=== PATIENT | male | born 1965 | race Two or more races ===

== ENCOUNTER 2022-04-02 01:54 | Emergency (ER) | payer MEDICAID, OTHER ==
[~2022-04-02] VITALS: Ht 182.9 cm; Wt 68.0 kg
[2022-04-02] MEDS ORDERED: HYDROcodone-ACET 5/325MG TAB PO ONE (07:30)
[2022-04-02] MEDS ORDERED: KETOROLAC TROMETH 60MG/2ML VIAL IM ONE (07:30)
[2022-04-02 07:52] VITALS: BP 126/88
== END 2022-04-02 11:45 | disposition home or self-care (01) ==
LOC: ER 01:54 → EDBD 01:54 → ER 11:24
DX: M79.10 Myalgia, unspecified site (principal); F41.9 Anxiety disorder, unspecified; F17.210 Nicotine dependence, cigarettes, uncomplicated

== ENCOUNTER 2022-05-04 01:56 | Emergency (ER) | payer MEDICAID ==
[~2022-05-04] VITALS: Ht 182.9 cm; Wt 68.0 kg
[2022-05-04 03:21] LABS: Basophils # (auto) 0 10 ^3/uL (0-0.2); Basophils % (auto) 1.2 % (0.0-2.0); Eosinophils # (auto) 0.1 10 ^3/uL (0-0.8); Eosinophils % (auto) 2.3 % (0.0-7.0); Hemoglobin 12.2 g/dL (13.5-17.5); Lymphocytes # (auto) 1.2 10 ^3/uL (0.4-5.4); Mean Corpuscular Hemoglobin 31.4 pg (28.0-32.0); Mean Corpuscular Volume 95.2 fL (80.0-100.0); Monocytes # (auto) 0.4 10 ^3/uL (0-1.3); Monocytes % (auto) 10.3 % (0.0-12.0); Neutrophils # (auto) 2.4 10 ^3/uL (1.6-8.6); Neutrophils % (auto) 58.2 % (37.0-80.0); Nucleated Red Blood Cells % 0.1 %; Red Blood Cells 3.89 10^6/uL (4.5-5.90); Red Cell Distribution Width 16.3 % (11.8-14.3); White Blood Cell 4.1 10^3/uL (4.4-10.8)
[2022-05-04 03:37] LABS: Albumin 3.6 g/dL (3.4-5.0); BUN/Creatinine Ratio 10.7; Potassium 3.6 mmol/L (3.5-5.1)
[2022-05-04 03:38] LABS: Salicylate < 1.7 mg/dL (2.8-20.0)
[2022-05-04 03:41] LABS: Bilirubin, Total 0.2 mg/dL (0.2-1.0); Total Protein 6.9 g/dL (6.4-8.2)
[2022-05-04 03:56] LABS: Acetaminophen < 2.0 ug/mL (10-30)
[2022-05-04] MEDS ORDERED: LORazepam 0.5 MG TAB PO ONE ×3 (04:00→13:45)
[2022-05-05 09:27] LABS: Urine Bacteria NONE SEEN /hpf (None Seen); Urine Blood Negative /uL (Negative); Urine WBC 1 /hpf (0 - 3)
[2022-05-05 09:41] LABS: Alcohol, Urine < 3.0 mg/dL (0-10); Amphetamine Screen, Urine NEGATIVE (NEGATIVE); Barbiturate Scree,Urine NEGATIVE (NEGATIVE); Benzodiazephine Screen, Urine NEGATIVE (NEGATIVE); Cannabinoid Screen, Urine NEGATIVE (NEGATIVE); Cocaine Screen, Urine NEGATIVE (NEGATIVE); Opiate Scree,Urine NEGATIVE (NEGATIVE); Phencyclidine Screen, Urine NEGATIVE (NEGATIVE)
[2022-05-06 02:59] VITALS: BP 115/91
== END 2022-05-06 07:09 | disposition home or self-care (01) ==
LOC: ER 01:56
DX: R45.851 Suicidal ideations (principal); F32.9 Major depressive disorder, single episode, unspecified; F17.210 Nicotine dependence, cigarettes, uncomplicated; F12.10 Cannabis abuse, uncomplicated; Z20.822 Contact with and (suspected) exposure to COVID-19
CPT/HCPCS: 36415; 80053; 80307; 80320; 80329; 81001; 85025